=== PATIENT | female | born 1975 | race Caucasian/White ===

== ENCOUNTER 2017-11-03 23:47 | Emergency (ER) | payer OTHER ==
[~2017-11-03] VITALS: Ht 157.5 cm; Wt 83.9 kg
[~2017-11-03 23:47] MED LIST: CARVEDILOL6.25 MG; NOHOMEMEDICATIONS; PHENERGAN 25 MG25 M1 PO; ULTRAM 50MG TAB50 MG PO
[2017-11-03] MEDS ORDERED: LISINOPRIL20 MG PO (23:54)
[2017-11-04] MEDS ORDERED: NORCO 5-325 TA1 EACH PO (00:31)
[2017-11-04 00:45] VITALS: BP 164/99
== END 2017-11-04 00:45 | disposition home or self-care (01) ==
LOC: M.ERS 23:47
DX: S66.911A Strain of unspecified muscle, fascia and tendon at wrist and hand level, right hand, initial encounter (principal); I10 Essential (primary) hypertension; G43.909 Migraine, unspecified, not intractable, without status migrainosus; W19.XXXA Unspecified fall, initial encounter; Y93.89 Activity, other specified; Y92.89 Other specified places as the place of occurrence of the external cause; Y99.8 Other external cause status